=== PATIENT | male | born 1945 | race Caucasian/White ===

== ENCOUNTER 2017-05-28 07:24 | Outpatient (CLI) | payer MEDICARE ==
[2017-05-28] VITALS (17 sets, daily range): BP systolic 130–155; BP diastolic 66–101
[~2017-05-28 07:24] MED LIST: ASPI-611 PO; ATOR80TA PO; FOLI0.4T2 PO; MULT-1085 PO; NADO40TA PO; NITR0.4T SL; OMEG500C PO; OMEP20TA23 PO; RANI150T8 PO; SERT50TA PO; TRAZ-146 PO
== END 2017-05-28 23:59 | disposition home or self-care (01) ==
LOC: CARD DIAG 07:24
PROVIDERS: ATTEND Internal Medicine Cardiovascular Disease
DX: R42 Dizziness and giddiness (principal); J44.9 Chronic obstructive pulmonary disease, unspecified
CPT/HCPCS: 93660

== ENCOUNTER 2021-03-19 08:19 | Inpatient (IN) | payer MEDICARE ==
[2021-03-18 13:42] LABS: MEAN CORPUSCULAR VOLUME 98.5 FL (78-98); PRE OP HEMATOCRIT 37.7 % (42.0-52.0); PRE OP PLATELET COUNT 163 X10'3 (140-440); RED BLOOD COUNT 3.83 X10'6 (4.70-6.10)
[2021-03-18 13:45] LABS: BASOPHILS % (AUTO) 0 % (0-1); EOSINOPHILS # (AUTO) 0.3 X10'3 (0-0.9); EOSINOPHILS % (AUTO) 6.7 % (0-6); LYMPHOCYTES # (AUTO) 1.3 X10'3 (1.1-4.8); LYMPHOCYTES % (AUTO) 26.7 % (21-51); MEAN CORPUSCULAR HEMOGLOBIN 33.7 PG (27.0-31.0); MEAN CORPUSCULAR HGB CONC 34.2 g/dL (33.0-36.5); MEAN PLATELET VOLUME 8.7 FL (7.4-10.4); MONOCYTES # (AUTO) 0.3 X10'3 (0-0.9); MONOCYTES % (AUTO) 6.7 % (2-12); NEUTROPHILS # (AUTO) 2.9 X10'3 (1.8-7.7); NEUTROPHILS % (AUTO) 59.9 % (42-75); PRE OP HEMOGLOBIN 12.9 g/dL (14.0-17.9); RED CELL DISTRIBUTION WIDTH 13.7 % (11.5-14.5)
[2021-03-18 14:16] LABS: ALBUMIN 3.7 G/DL (3.4-5.0); ALBUMIN/GLOBULIN RATIO 1.6 (1.1-1.5); ALKALINE PHOSPHATASE 57 IU/L (46-116); BLOOD UREA NITROGEN 16 MG/DL (7-18); BUN/CREATININE RATIO 18.4 (5.4-32.0); CALCIUM 8.2 MG/DL (8.5-10.1); CHLORIDE 107 MMOL/L (99-107); CREATININE 0.87 MG/DL (0.60-1.10); PRE OP ALT 21 U/L (30-65); PRE OP ANION GAP 5 (8-16); PRE OP AST 14 U/L (10-37); PRE OP BILIRUB, TOTAL 0.3 MG/DL (0.0-1.0); PRE OP GLUCOSE 86 MG/DL (70-104); PRE OP SODIUM 142 MMOL/L (135-145); TOTAL CARBON DIOXIDE 29.9 MMOL/L (24-32); eGFR 86 ML/MIN
[2021-03-19] VITALS (21 sets, daily range): BP systolic 128–159; BP diastolic 64–85
[~2021-03-19] VITALS: Ht 175.3 cm; Wt 87.6 kg
[~2021-03-19 08:19] MED LIST changes: +AMIO200T61 PO; +D3 PO; +FINA5TAB11 PO; +FLO0.4C PO; -FOLI0.4T2 PO; +FOLI0.4T6 PO; +FOLI400T4 PO; -NADO40TA PO; +OXYB5TAB16 PO; -RANI150T8 PO; +TIOT18CA3 INH; -TRAZ-146 PO; +TRAZ-256 PO; +[UNRECOGNIZED DRUG - OTHER] PO; +[UNRECOGNIZED DRUG - OTHER] PO; +albuterol 2.5 MG/3 ML nebule NEB ONE; +cefazolin/dext.iso 2gm/50ml IV ONE; +famotidine 20mg tablet PO ONE; +ringers solution, lacted 1,000 ML IV SCH; +tranexamic acid 650mg tablet PO ONE; +vancomycin 1,500 MG in NS 300ml IV soln IV ONE
[2021-03-19] MEDS ORDERED: BIOT1CAP3 PO (09:42)
[2021-03-19] MEDS ORDERED: proCHLORperazine 10 MG/2 ml inj IV PRN (10:05)
[2021-03-19] MEDS ORDERED: meperidine/PF 25mg/ml syringe IV PRN ×3 (10:05)
[2021-03-19] MEDS ORDERED: morphine 2 MG/ML inj. syringe IV PRN (10:05)
[2021-03-19] MEDS ORDERED: morphine 4 MG/ML inj SYRINge IV PRN (10:05)
[2021-03-19] MEDS ORDERED: ondansetron/PF 4mg/2ml inj IV PRN ×2 (10:05→13:35)
[2021-03-19] MEDS ORDERED: ringers solution, lacted 1,000 ML IV SCH (10:05)
[2021-03-19] MEDS ORDERED: ketorolac trometh. 30mg/ml inj. ONE (11:10)
[2021-03-19] MEDS ORDERED: ROPIVAcaine 0.5% (5mg/ml) 30ml vial ONE ×2 (11:11→11:27)
[2021-03-19] MEDS ORDERED: fentaNYL/PF 50MCG/1 ML 2ML syringe ONE (11:25)
[2021-03-19] MEDS ORDERED: MIDAZolam 1 MG/ML 5ML VIAL ONE (11:25)
[2021-03-19] MEDS ORDERED: propofol inj 20 ML IV ONE (11:27)
[2021-03-19] MEDS ORDERED: LIDOcaine 2% (20mg/ml) 5ml vial ONE (11:27)
[2021-03-19] MEDS ORDERED: ondansetron/PF 4mg/2ml inj ONE (12:40)
[2021-03-19] MEDS ORDERED: dexamethasone sod phosphate 4mg/ml inj. ONE (12:40)
[2021-03-19] MEDS ORDERED: ROPIVAcaine 0.2% (10 MG/5 ML) BOLUS INJECTION INTERSCALE PRN (12:45)
[2021-03-19] MEDS ORDERED: ROPIVAcaine 0.2%/PF PUMP/bolus 545 ML INTERSCALE SCH (12:45)
[2021-03-19] MEDS ORDERED: bisacodyl 10mg suppository rectal RC PRN (13:35)
[2021-03-19] MEDS ORDERED: diphenhydrAMINE 25mg capsule PO PRN ×2 (13:35)
[2021-03-19] MEDS ORDERED: magnesium hydroxide 30ml (MOM) UD suspension PO PRN ×2 (13:35→14:29)
[2021-03-19] MEDS ORDERED: nitroGLYCERIN 0.4mg SUBLingual tab SL PRN (13:35)
[2021-03-19] MEDS ORDERED: [UNRECOGNIZED DRUG - OTHER] PO PRN (13:35)
[2021-03-19] MEDS ORDERED: acetaminophen 325mg tablet PO PRN (13:35)
[2021-03-19] MEDS ORDERED: HYDROmorphone inj. 0.5 MG/0.5 ML DISP.SYRIN IV PRN (13:35)
[2021-03-19] MEDS ORDERED: oxyCODONE IR 5mg (immed. release) tablet PO PRN (13:35)
[2021-03-19] MEDS ORDERED: HYDROmorphone 1 mg/ml syringe IV PRN (13:35)
--- NOTE | 2021-03-19 13:40 | NUR ---
Received from OR via BED, accompanied by Anesthesiologist DR. DALTON and report given by Anesthesiologist. PATIENT WAKING UP, NO S/S OF PAIN, V/S WNL, SCD ON, 18G TO LUE, SHOULDER WRAP WITH POWDER PACK AND SLING IN PLACE-CDI, + PULSES CSM PRESENT TO RIGHT HAND/FINGERS, ON-Q CATHETER PRESENT.
[2021-03-19] MEDS: acetaminophen 325mg tablet PO SCH ×2 (14:00→20:46)
--- NOTE | 2021-03-19 15:30 | NUR ---
PT VSS, ABLE TO AMBULATE TO BATHROOM TO VOID, RIGHT ARM IN SLING WITH ON-Q PUMP ATTACHED RUNNING AT 2ML/HR-PT EDUCATED REGARDING USE, PIV WITH LR RUNNING AT 100ML/HR, SHOULDER WRAP AND ICE PACK IN PLACE-CDI, CSM INTACT TO RIGHT HAND/FINGERS, +2 PULSE NOTED, REPORT CALLED TO EKTA URBAN-ALL QUESTIONS ANSWERED, PATIENT TAKEN TO ROOM 340B WITH ALL BELONGINGS AND HOOKED UP TO MONITORS IN ROOM AND GIVEN CALL LIGHT, PRIMARY RN WHO HAS TAKEN OVER PATIENT CARE.
--- NOTE | 2021-03-19 15:36 | NUR ---
Patient just got into his new room from PACU, accompanied by Lilli URBAN and another staff. Patient alert, oriented x 4. S/p Right shoulder. Right shoulder dressing intact and dry. OnQ ball at 2 ml/hr. Patient hooked to post op vital sign machine for monitoring. Instructed patient to use call light for assistance to go the bathroom.
[2021-03-19] MEDS: ipratropium 0.5 MG/2.5ML nebule IH SCH ×2 (17:37→20:18)
[2021-03-19] MEDS: potassium cl 20mEq in 1/2 NS 1,000 ML IV SCH ×2 (18:03→21:35)
--- NOTE | 2021-03-19 18:40 | NUR ---
Patient in room [facility] [address]. I have received report from KIKA URBAN and had the opportunity to ask questions and assume patient care.
[2021-03-19] MEDS: ceFAZolin/D5W- 1GM premix 50 ML IV SCH (19:27)
[2021-03-19] MEDS ORDERED: VANCOMYCIN 1GM/200ML IVPB 200 ML IV SCH (20:00)
[2021-03-19] MEDS: oxyCODONE IR 5mg (immed. release) tablet PO PRN (20:46)
[2021-03-19] MEDS: oxybutynin 5mg tablet PO SCH (20:47)
[2021-03-19] MEDS ORDERED: traZODone 50mg tablet PO SCH (21:00)
[2021-03-19] MEDS ORDERED: tamsulosin 0.4mg capsule PO SCH (21:00)
[2021-03-19] MEDS ORDERED: sennosides 8.6mg tablet PO SCH (21:00)
[2021-03-20] VITALS: BP 142/76
[2021-03-20] MEDS: ceFAZolin/D5W- 1GM premix 50 ML IV SCH (01:36)
[2021-03-20] MEDS: acetaminophen 325mg tablet PO SCH ×3 (02:00→08:24)
[2021-03-20] MEDS: ipratropium 0.5 MG/2.5ML nebule IH SCH ×2 (03:00→07:49)
[2021-03-20] MEDS: potassium cl 20mEq in 1/2 NS 1,000 ML IV SCH (05:28)
[2021-03-20] MEDS: oxyCODONE IR 5mg (immed. release) tablet PO PRN (05:28)
--- NOTE | 2021-03-20 06:11 | NUR ---
Problems reprioritized. Patient report given, questions answered & plan of care reviewed with KIKA URBAN.
[2021-03-20 06:36] LABS: BASOPHILS % (AUTO) 0.1 % (0-1); EOSINOPHILS % (AUTO) 0 % (0-6); HEMATOCRIT 31.8 % (42.0-52.0); HEMOGLOBIN 10.9 g/dl (14.0-17.9); LYMPHOCYTES # (AUTO) 1.1 X10'3 (1.1-4.8); LYMPHOCYTES % (AUTO) 11.9 % (21-51); MEAN CORPUSCULAR HEMOGLOBIN 34.2 PG (27.0-31.0); MEAN CORPUSCULAR HGB CONC 34.3 g/dL (33.0-36.5); MEAN CORPUSCULAR VOLUME 99.7 FL (78-98); MEAN PLATELET VOLUME 8.9 FL (7.4-10.4); MONOCYTES # (AUTO) 0.5 X10'3 (0-0.9); MONOCYTES % (AUTO) 5.3 % (2-12); NEUTROPHILS # (AUTO) 7.6 X10'3 (1.8-7.7); NEUTROPHILS % (AUTO) 82.7 % (42-75); PLATELET COUNT 148 X10'3 (140-440); RED BLOOD COUNT 3.19 X10'6 (4.70-6.10); RED CELL DISTRIBUTION WIDTH 13.7 % (11.5-14.5); WHITE BLOOD COUNT 9.2 X10'3 (4.5-11.0)
[2021-03-20 06:41] LABS: ANION GAP 7 (8-16); CHLORIDE 110 MMOL/L (99-107); POTASSIUM 4.2 MMOL/L (3.5-5.1); SODIUM 144 MMOL/L (135-145)
[2021-03-20 07:00] VITALS: BP 126/59
[2021-03-20] MEDS ORDERED: pantoprazole 40mg Tablet.DR PO SCH (07:30)
[2021-03-20] MEDS ORDERED: vitamin B comp w/Vit. C tab 1 TAB TABLET PO SCH (08:00)
[2021-03-20] MEDS ORDERED: atorvastatin 20mg tablet PO SCH (08:00)
[2021-03-20] MEDS ORDERED: finasteride 5mg tablet PO SCH (08:00)
[2021-03-20] MEDS ORDERED: non-formulary drug (Tiotropium Bromide (Spiriva) 2 PUFFS) INH SCH (08:00)
[2021-03-20] MEDS ORDERED: omega-3 acid ethyl esters 1GM capsule PO SCH (08:00)
[2021-03-20] MEDS ORDERED: multivitamins, therapeutics tablet PO SCH (08:00)
[2021-03-20] MEDS ORDERED: sertraline 50mg tablet PO SCH (08:00)
[2021-03-20] MEDS ORDERED: ASPIRIN PO SCH (08:00)
[2021-03-20] MEDS ORDERED: cholecalciferol (vitamin D3) 1,000 unit (25mcg) tablet PO SCH (08:00)
[2021-03-20] MEDS ORDERED: amiodarone 200mg tablet PO SCH (08:00)
[2021-03-20] MEDS: oxybutynin 5mg tablet PO SCH ×2 (08:22→13:06)
[2021-03-20] MEDS ORDERED: aspirin 325mg tablet PO SCH (08:30)
[2021-03-20 11:00] VITALS: BP 118/42
--- NOTE | 2021-03-20 13:01 | NUR ---
Discharge instructions given to patient and his at bedside, both verbalized understanding of all instructions given. Patient was given instruction on how to remove catheter connected to the OnQ ball and what signs and symptoms to watch for. Shoulder precautions were also discussed with patient and his .Ice pack were provided upon discharge. Instructed patient to ensure they have all belongings with him before leaving the hospital.
[2021-03-21] MEDS ORDERED: acetaminophen 325mg tablet PO PRN (13:35)
== END 2021-03-20 13:20 | disposition home or self-care (01) | DRG 483 ==
LOC: PAS IN 08:19 → SUR 3N 15:15
PROVIDERS: ADMIT Orthopaedic Surgery; ATTEND Orthopaedic Surgery
PROC: 0LS30ZZ Reposition Right Upper Arm Tendon, Open Approach (ICD-10-PCS; 2021-03-19)
PROC: 3E0T3BZ Introduction of Anesthetic Agent into Peripheral Nerves and Plexi, Percutaneous Approach (ICD-10-PCS; 2021-03-19)
PROC: 3E0T33Z Introduction of Anti-inflammatory into Peripheral Nerves and Plexi, Percutaneous Approach (ICD-10-PCS; 2021-03-19)
PROC: 0RRJ00Z Replacement of Right Shoulder Joint with Reverse Ball and Socket Synthetic Substitute, Open Approach (ICD-10-PCS; principal; 2021-03-19 11:22)
DX: M19.011 Primary osteoarthritis, right shoulder (principal); D62 Acute posthemorrhagic anemia; Z79.899 Other long term (current) drug therapy; M66.811 Spontaneous rupture of other tendons, right shoulder
CPT/HCPCS: 36415; 71046; 80051; 80053; 82948; 85025; 87081; 87635; 93005; 94640; 94760; 97110; 97161; 97530; A4618; A7000; C1776; G0378; J0690; J1100; J1885; J2250; J2405; J2704; J2795; J3010; J3370; J3480; J3490; J7040; J7120

== ENCOUNTER 2023-01-06 02:29 | Outpatient (CLI) | payer OTHER ==
[~2023-01-06 02:29] MED LIST changes: +AMI200T PO; -AMIO200T61 PO; -ASPI-611 PO; +BIOT1CAP3 PO; -FOLI0.4T6 PO; -[UNRECOGNIZED DRUG - OTHER] PO; -albuterol 2.5 MG/3 ML nebule NEB ONE; -cefazolin/dext.iso 2gm/50ml IV ONE; -famotidine 20mg tablet PO ONE; -ringers solution, lacted 1,000 ML IV SCH; -tranexamic acid 650mg tablet PO ONE; -vancomycin 1,500 MG in NS 300ml IV soln IV ONE
== END 2023-01-06 23:59 | disposition home or self-care (01) ==
LOC: RT 02:29
PROVIDERS: ATTEND Student in an Organized Health Care Education/Training Program
DX: J84.10 Pulmonary fibrosis, unspecified (principal)
CPT/HCPCS: 94618

== ENCOUNTER 2024-07-04 06:39 | Day surgery (SDC) | payer MEDICARE ==
[~2024-07-04] VITALS: Ht 175.3 cm; Wt 88.1 kg
[2024-07-04] VITALS (11 sets, daily range): BP systolic 116–161; BP diastolic 48–71; PULSE 56–65; RESP 12–18; TEMP 97.8; O2SAT 93–97
[~2024-07-04 06:39] MED LIST changes: +ATOR-429 PO; -ATOR80TA PO; -FLO0.4C PO; -OXYB5TAB16 PO; +OXYB5TAB21 PO; +TAMS-55 PO
--- NOTE | 2024-07-04 07:14 | ELECTROCARDIOGRAPH REPORT ---
[facility] Test Date: 2024-07-04 Test Time: 07:12:33 Pat Name: JENNIFER WALLACE Department: [facility] Patient ID: [facility]-[id number] Room: Gender: M Chief Communications Officer: HARJINDER : 1945 Requested By: HUMA MIRZA Order Number: [id number] Reading MD: Dr. ROCCO Diop Measurements Intervals [place] Rate: 64 P: -1 ID: [id number] QRS: -11 QRSD: 99 T: 29 QT: 422 QTc: 436 Interpretive Statements Sinus rhythm Prolonged ID interval Electronically Signed On 07-04-2024 19:13:[address] ROCCO Diop Please click the below link to view image of tracing.
[2024-07-04] MEDS ORDERED: BENZ-38 PO (07:17)
[2024-07-04] MEDS ORDERED: FLUT16SP13 BOTHNARES (07:18)
[2024-07-04] MEDS ORDERED: MIRA25TA PO (07:19)
[2024-07-04] MEDS ORDERED: PYRI50TA12 (07:21)
[2024-07-04] MEDS ORDERED: DILT120T PO (07:21)
[2024-07-04] MEDS ORDERED: OMEP40CA21 PO (07:22)
[2024-07-04] MEDS ORDERED: ASPI-1265 PO (07:22)
[2024-07-04 07:49] LABS: BASOPHILS # (AUTO) 0.1 X10'3 (0-0.2); BASOPHILS % (AUTO) 0.8 % (0-1); EOSINOPHILS # (AUTO) 0.2 X10'3 (0-0.9); EOSINOPHILS % (AUTO) 2.6 % (0-6); HEMATOCRIT 36.1 % (42.0-52.0); HEMOGLOBIN 12.3 g/dl (14.0-17.9); LYMPHOCYTES % (AUTO) 55.1 % (21-51); MEAN CORPUSCULAR HEMOGLOBIN 33.7 PG (27.0-31.0); MEAN CORPUSCULAR VOLUME 99.2 FL (78-98); MEAN PLATELET VOLUME 8.1 FL (7.4-10.4); MONOCYTES # (AUTO) 0.4 X10'3 (0-0.9); MONOCYTES % (AUTO) 4.1 % (2-12); NEUTROPHILS # (AUTO) 3.4 X10'3 (1.8-7.7); NEUTROPHILS % (AUTO) 37.4 % (42-75); PLATELET COUNT 185 X10'3 (140-440); RED BLOOD COUNT 3.64 X10'6 (4.70-6.10); RED CELL DISTRIBUTION WIDTH 14.2 % (11.5-14.5); WHITE BLOOD COUNT 9.1 X10'3 (4.5-11.0)
[2024-07-04 07:50] LABS: ALBUMIN 3.7 G/DL (3.4-5.0); ANION GAP 6 (8-16); BLOOD UREA NITROGEN 12 MG/DL (7-18); BUN/CREATININE RATIO 14.1 (10.0-20.0); CALCIUM 8.5 MG/DL (8.5-10.1); CHLORIDE 107 MMOL/L (99-107); CREATININE 0.85 MG/DL (0.60-1.10); GLUCOSE 108 MG/DL (70-104); MAGNESIUM 2.1 MG/DL (1.5-2.4); POTASSIUM 3.9 MMOL/L (3.5-5.1); SODIUM 142 MMOL/L (135-145); TOTAL CARBON DIOXIDE 29.4 MMOL/L (24-32); eCRCL 72 ML/MIN; eGFR 87 ML/MIN
[2024-07-04 07:51] LABS: INR 1.1 INR; PROTHROMBIN TIME 10.8 SECONDS (9.0-12.0)
[2024-07-04] MEDS: diphenhydrAMINE 25mg capsule PO PRN (08:05)
[2024-07-04] MEDS: sodium bicarbonate 1meq/ml syr 150 ML in dextrose 5%-water 1,000 ML IV ONE (08:06)
[2024-07-04] MEDS: normal saline 1,000 ML IV SCH (08:06)
[2024-07-04] MEDS ORDERED: verapamil 2.5 mg/ml inj IV ONE (08:39)
[2024-07-04] MEDS ORDERED: fentaNYL/PF 50MCG/1 ML 2ML syringe ONE (08:39)
[2024-07-04] MEDS ORDERED: midazolam 1 mg/ML 2ml injection ONE ×2 (08:39→09:23)
[2024-07-04] MEDS ORDERED: LIDOcaine 1% (10mg/ml) 2ml vial ONE (08:39)
[2024-07-04] MEDS ORDERED: heparin 1,000unit/ml 10ml vial 10 ML ONE (08:40)
[2024-07-04] MEDS ORDERED: iohexol 350 MG/ML 50ML vial IV ONE ×2 (08:40→09:45)
[2024-07-04] MEDS ORDERED: iohexol 350MG/ML 100ml bottle IV ONE ×2 (08:40→09:48)
[2024-07-04] MEDS ORDERED: LIDOcaine 1% 30ml preserv. free vial ONE (08:55)
[2024-07-04 09:14] LABS: TOTAL CELLS COUNTED 100
[2024-07-04 09:15] LABS: PLATELET ESTIMATE NORMAL
[2024-07-04] MEDS ORDERED: ondansetron/PF 4mg/2ml inj IV PRN (11:05)
[2024-07-04] MEDS ORDERED: HYDROcodone/acetaminophen 10/325mg tab PO PRN (11:05)
[2024-07-04] MEDS ORDERED: HYDROcodone/acetaminophen 5mg/325mg tablet PO PRN (11:05)
[2024-07-04] MEDS ORDERED: proCHLORperazine 10 MG/2 ml inj IV PRN (11:05)
--- NOTE | 2024-07-04 12:15 | CARDIOLOGY REPORT ---
DATE OF SERVICE: 07/04/2024 DICTATING PHYSICIAN: HUMA MIRZA DO CARDIAC CATHETERIZATION REPORT REFERRING PHYSICIAN: Magaly Sinha MD. CLINICAL HISTORY: This 79-year-old man is status post 4-vessel CABG in 1999. He has recently developed exertional dyspnea, associated with chest discomfort. Coincidentally, he also has pulmonary fibrosis and it is not clear whether his chest discomfort is due to his lung disease or to ischemia. PROCEDURES PERFORMED: * Left heart catheterization. * Left ventriculography. * Selective coronary arteriography. * Selective opacification of saphenous vein graft. * Selectable opacification of an internal mammary graft. * Percutaneous arteriotomy closure (Perclose). * A 45-minute conscious sedation and supervision. DESCRIPTION OF PROCEDURE: The patient was sedated with fentanyl and Versed. He was then prepared and draped in the usual manner. The right inguinal area was infiltrated with 1% lidocaine. Using a micropuncture set and a Seldinger technique, a 7-[place] sheath was placed in the common femoral artery, 3000 units of heparin were given. Left heart catheterization and left ventriculography were performed using a 6-[place] pigtail catheter. Coronary arteriography was performed using 6-[place] #4 left and right Ana catheters. All bypass grafts were opacified using a 6-[place] #4 right Ana catheter. The arterial puncture site was successfully Perclosed. RESULTS: HEMODYNAMIC DATA: The left ventricular and diastolic pressure was 3 mmHg. There was no gradient across the aortic valve. LEFT VENTRICULOGRAM: The left ventriculogram was satisfactory. Post PVC, the ejection fraction was estimated to be about 60%. CORONARY ARTERIOGRAPHY: The coronary arteriograms were technically satisfactory. The patient had a right dominant system. LEFT MAIN CORONARY ARTERY: The left main was a medium-sized, unobstructed vessel bifurcating into left anterior descending and circumflex coronary arteries. LEFT ANTERIOR DESCENDING CORONARY ARTERY: The LAD was a small to medium-sized vessel that was not transapical. There were mild luminal irregularities in the mid vessel. Looking at all views, there was about a 40%-50% mid LAD lesion. There was some competitive flow in a SOSA graft to the mid vessel further downstream from the area of narrowing just described. There was a very small caliber, very proximal diagonal emanating from the LAD; otherwise, no other diagonals were opacified. CIRCUMFLEX CORONARY ARTERY: The circumflex was a medium to large main stem vessel. There was a very large obtuse marginal branch with some retrograde filling of a saphenous vein graft. There was a small to medium-sized first posterolateral and a tiny second posterolateral. There were no obstructive lesions in the circumflex coronary artery. RIGHT CORONARY ARTERY: The right coronary artery was a small to medium-sized main stem vessel. There was a small to medium-sized posterior descending branch reaching out to the apex. Distally, there were 2 small posterolateral branches. There was retrograde filling of a saphenous vein graft coming off the distal right coronary, but the anastomosis was proximal to the posterior descending branch. SELECTIVE OPACIFICATION OF BYPASS GRAFTS: There is a patent saphenous vein graft to what looks like a medium-sized, diagonal from the LAD. There were no obstructive lesions in the graft or in the grindstone vessel beyond the distal anastomosis. There is a large unobstructed saphenous vein graft leading to the large obtuse marginal branch of the circumflex coronary artery. There is a patent saphenous vein graft to the distal right coronary. There were no obstructive lesions in the graft during the grindstone vessel beyond the distal anastomosis. There was filling of a small atretic-looking internal mammary graft, which did not completely fill down to the LAD, but there was obvious competitive flow from this graft at its anastomosis in the mid LAD on the grindstone vessel injections. It has been previously described as patent, but atretic. 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 There is also a 40%-50% narrowing in the mid LAD. This does not appear to be a particularly restrictive vessel given the fact that the SOSA to the LAD is atretic. * All venous bypass grafts are patent and there is no obstructive disease in the grafts or in the grindstone vessel beyond the distal anastomosis. These are as follows: * A. SVG to proximal/principal LAD diagonal. * B. SVG to principal circumflex marginal branch. * C SVG to distal right coronary. * Left ventricular systolic function appears to be normal. The estimated ejection fraction was at least 60%. RECOMMENDATIONS: Ongoing medical therapy. HUMA MIRZA DO TID: [id number] RECEIPT: [id number] SUZAN/ALBERTINA MTDD
== END 2024-07-04 13:30 | disposition home or self-care (01) ==
LOC: SSTAY O 06:39
PROVIDERS: ATTEND Internal Medicine Cardiovascular Disease
DX: I25.10 Atherosclerotic heart disease of native coronary artery without angina pectoris (principal); J84.10 Pulmonary fibrosis, unspecified; Z79.899 Other long term (current) drug therapy; Z95.5 Presence of coronary angioplasty implant and graft
CPT/HCPCS: 80048; 83735; 85025; 85610; 93005; 93459; 99152; 99153; A6258; C1725; C1760; C1894; J1644; J2003; J2250; J3010; J3490; J7030; J7070; Q0163; Q9967; Z7610; 85007